=== PATIENT | male | born 1955 | race Two or more races ===

== ENCOUNTER 2025-02-03 10:33 | Emergency (ER) | payer MEDICARE, MEDICAID, SELFPAY ==
[2025-02-03 11:31] VITALS: BP 165/82; PULSE 66; RESP 16; TEMP 36.6; O2SAT 99; BMI 22.7
--- NOTE | 2025-02-03 11:35 | ED_ITS ---
HPI - General Adult General Chief complaint: Skin/Abscess/Foreign Body Stated complaint: R arm burn, L hand, Neck Time Seen by Provider: 02/03/25 11:34 Source: patient, family, RN notes reviewed and old records reviewed Mode of arrival: ambulatory Limitations: no limitations History of Present Illness ED Provider: Bebe [facility] narrative: Patient is a 69-year-old male presenting to the emergency department with daughter who reports that patient has recently developed excoriation and irritation to right AC area and upper arm as well as upper chest and left hand. Denies any history of eczema. States it is pruritic. Denies any fevers. Denies any other systemic symptoms. No rash to palms, soles. MD complaint: rash Related Data Previous Rx's ?Medication ?Instructions ?Recorded triamcinolone acetonide 0.025 % 1 appl topical TID 2 w eeks #15 02/03/25 topical cream grams Allergies Allergy/AdvReac Type Severity Reaction Status Date / Time No Known Allergies Allergy Verified 02/03/25 11:34 Review of Systems Review of Systems: as per hpi Yes all other systems are reviewed and are negative Constitutional: Constitutional: Reports as per HPI Physical Exam ED Vital Signs: Vital Signs - 24 hr 02/03/25 11:31 Temperature 98 F Pulse Rate 66 Respiratory Rate 16 Blood Pressure 165/82 H Pulse Oximetry 99 Oxygen Delivery Method Room Air BMI result Body Mass Index 22.7 Vital signs have been reviewed and appear to be correct. Blood pressure elevated. Heart rate normal. Respiratory rate normal. Temperature normal. Oxygen saturation normal. Const General: cooperative, healthy appearing and no acute distress Orientation/consciousness: oriented to person, oriented to place, oriented to time and patient oriented x3 Limitations: no limitations [facility] Head: Yes normocephalic and Yes atraumatic Ears: external ears normal General nose exam: Normal external nose present Face and sinus: Yes face symmetric Mouth: Normal oral and palatal mucosa present, lip normal, tongue normal, oropharynx normal and moist mucous membranes Throat: Yes uvula midline Eyes Pupils: Equal, round and reactive pupils present Neck Neck: Yes normal visual inspection and Yes supple Resp Effort & Inspection: normal respiratory effort and able to speak in complete sentences Auscultation: clear to auscultation bilaterally Cardio Rate: regular rate Rhythm: regular rhythm Heart sounds: S1 normal heart sound present and S2 normal heart sound present GI Palpation (GI): Soft to palpation and nontender Auscultation: normoactive bowel sounds General: Yes no CVA tenderness Back/Spine/Pelvis Back: no CVA tenderness Skin Other: erythema and excoriation to right anterior upper arm and antecubital area, left hand and upper chest General skin exam: elasticity normal and turgor normal Neuro General: oriented to person, oriented to place, oriented to time, patient oriented x3, moves all extremities, no focal motor deficits and CN's II-XI intact bilaterally Cranial nerves: Yes Equal, round and reactive pupils present Cognition (Neuro): normal cognition Extrem General: Yes full ROM, Yes no pedal edema and Yes no calf tenderness Psych Mental Status: mental status grossly normal Affect: normal affect Thought process: Normal thought process present Medical Decision Making Medical Decision Making [facility] Narrative: Patient is a 69-year-old male presenting to the emergency department with daughter who reports that patient has recently developed excoriation and irritation to right AC area and upper arm as well as upper chest and left hand. On exam patient is awake, A+Ox3, VS WNL, afebrile, normal neurological exam without focal deficits, physical exam findings as above. Given reported symptoms and physical exam findings, initial differential includes but is not limited to atopic dermatitis, contact dermatitis. Does not appear cellulitic. Do not suspect TEN/SJS, DRESS, TTP/DIC, necrotizing fasciitis, meningococcemia, SSSS, TSS, anaphylaxis. Will discharge with triamcinolone cream, also advised using a second generation antihistamine and famotidine for pruritis. Follow up with PCP. Return precautions discussed. Patient verbalized understanding of and agreement with plan. Differential Diagnosis Differential Diagnoses: The differential diagnosis associated with the presentation includes As per [facility] Admission/Observation Consideration of admission/observation: Escalation of care including admission/observation considered Patient would have been admitted to the hospital had their clinical presentation warranted hospital admission. External Record Review External record reviewed: Inpatient record, Office record and Outpatient record Prescription Management I considered prescription management with: Other Discharge Plan Discharge Clinical Impression: Atopic dermatitis Qualifiers: Atopic dermatitis type: unspecified Qualified Code(s): L20.9 - Atopic dermatitis, unspecified Patient Disposition: Home, Self-Care Instructions: Eczema (ED) Additional Instructions: You were evaluated in the emergency department today for a rash. Your evaluation did not reveal evidence of conditions requiring emergent medical treatment. We recommend that you take a daily antihistamine such as loratadine (Claritin) or cetirizine (Zyrtec). You can also add over the counter famotidine (Pepcid) which is a different type of antihistamine. You are being prescribed a topical cream, apply this as directed. You can also apply a thick unscented lotion to the affected areas such as Eucerine or Vanicream several times daily. Follow up with your primary care provider this week. If your symptoms do not improve, follow up with a cosmetologist. Return to the emergency department if you develop difficulty breathing or shortness of breath, swelling to lips, tongue, fever, rash inside your mouth or to your palms/soles or any other concerning symptoms. Prescriptions: New triamcinolone acetonide 0.025 % cream 1 appl topical TID 14 Days Qty: 15 0RF Print Language: Mohawk
--- OUTSIDE RECORDS SUMMARY | 2025-02-03 12:21 | XMS_ITS | Clinical Summary ---
Author Organization [facility] Address [address] [place] [address] Care Team Providers Care Rug Dyer Helper Name Role Phone DeepaliMarisabel rojas ALEXANDRA Primary Care Provider Source Comments PLEASE NOTE, if this patient is a minor, it may be UNLAWFUL to discuss sensitive information that is contained in these records (such as FAMILY PLANNING, MENTAL HEALTH or SUBSTANCE ABUSE) with the minor patient's parent or other person without the patient's specific authorization.[facility] Allergies No known active allergies Medications MISCELLANEOUS MEDICAL SUPPLY MISCIndications: Gait instability,Rout ine general medical examination at a health care facility by miscellaneous route daily Please dispense roller walker with a seat for lifetime use for hx of gait instability 1 Each 10/29/19 25 Active acetaminophen (TYLENOL) 325 mg tabletIndication s:Left leg pain,Chronic left shoulder pain Take 2 Tablets by mouth every 8 (eight) hours 90 Tablet 1 10/29/19 25 Active ferrous sulfate 325 mg (65 mg iron) tabletIndication s:Iron deficiency Take 1 Tablet by mouth once daily with breakfast 90 Tablet 11/01/19 25 Active amLODIPine (NORVASC) 2.5 mg tabletIndication s:Primary hypertension Take 1 Tablet by mouth once daily 90 Tablet 11/01/19 25 Active Active Problems No known active problems Encounters Date Type Department Care Team Description 12/23/2024 Interim Notes [address] [id number] Xavier Rudolph MA from Last 3 Months Family History Medical History Relation Name Comments Alcohol abuse Brother x6 Depression Daughter x1 Diabetes Daughter x1 No Known Problems Father Kidney failure Mother Relation Name Status Comments Brother x6 Alive Daughter x1 Alive Father Mother Sister x3 Alive Son x2 Alive Social History Tobacco Use Types Packs/Day Years Used Date Smoking Tobacco: Never Smokeless Tobacco: Never Tobacco Cessation:Counseling Given: Not Answered Alcohol Use Standard Drinks/Week Comments Yes 0 (1 standard drink = 0.6 oz pure alcohol) 15 drinks a week about 3 drinks a day Sex and Gender Information Value Date Recorded Sex Assigned at Male 10/28/2024 3:23 PM PDT Legal Sex Male 7:14 AM PDT Gender Identity Male 10/28/2024 3:23 PM PDT Sexual Orientation Straight 10/28/2024 3: 23 PM PDT Last Filed Vital Signs Vital Sign Reading Time Taken Comments Blood Pressure 140/80 10/28/2024 1:23 PM EDT Pulse 97 10/28/2024 1:23 PM EDT Temperature 36.8 C (98.2 F) 10/28/2024 1:23 PM EDT Respiratory Rate 16 10/28/2024 1:23 PM EDT Oxygen Saturation 97% 10/28/2024 1:23 PM EDT Inhaled Oxygen Concentration - - Weight 58.1 kg (128 lb) 10/28/2024 1:23 PM EDT Height 162 cm (5' 3.78 ) 10/28/2024 1:23 PM EDT Body Mass Index 22.12 10/28/2024 1:23 PM EDT Plan of Treatment Health Maintenance Due Date Last Done Comments CT Colonography 2000 Colonoscopy 2000 Colorectal Cancer Screening 2000 FIT/gFOBT 2000 Fecal DNA 2000 Flexible Sigmoidoscopy 2000 Depression Monitoring 01/28/2025 10/28/2024 [id number] () 01/28/2025 Postponed from 02/24 (Patient postponement) Imm-DTaP/Tdap/Td (1 - Tdap) 01/28/2025 Postponed from 1974 (Patient postponement) Imm-Pneumococcal 50+ (1 of 1 - PCV) 01/28/2025 Postponed from 04/19 (Patient postponement) Imm-Zoster, Recombinant (1 o f 2) 01/28/2025 Postponed from 04/19 (Patient postponement) Imm-Influenza (#1) 2025 Falls Prevention 10/28/2025 10/28/2024 Medicare Annual Wellness Visit 10/28/2025 10/28/2024 Tobacco Screening 10/28/2025 10/28/2024 Diabetes Screening 10/29/2027 10/28/2024, 10/28/2024 Lipid Screening 10/29/2027 10/28/2024 Alcohol and Drug Screen Addressed 10/28/2024 Over ridden with the intention of not completing the topic Hepatitis C Screening Completed 10/28/2024 Procedures Procedure Name Priority Date/Time Associated Diagnosis Comments OTHER ORDERS SCANNED DOCUMENT 12/25/2024 3:00 AM EDT OTHER ORDERS SCANNED DOCUMENT 12/25/2024 3:00 AM EDT OTHER ORDERS SCANNED DOCUMENT 12/25/2024 3:00 AM EDT REFERRAL SCANNED DOCUMENT 11/18/2024 3:00 AM EDT LAB COLOGUARD COLON CANCER SCREEN AMB- Unsuccessful Attempt Routine 11/11/2024 1:14 PM EDT Screening for colon cancer Routine general medical examination at a health care facility OTHER ORDERS SCANNED DOCUMENT 11/11/2024 3:00 AM EDT HEPATITIS C AB W/RFLX HCV RNA, QT, RT PCR Routine 10/28/2024 2:09 PM EDT Routine general medical examination at a health care facility Encounter for hepatitis C virus screening test for high risk patient COMPREHENSIVE METABOLIC PANEL Routine 10/28/2024 2:09 PM EDT Routine general medical examination at a health care facility LIPID PANEL Routine 10/28/2024 2:09 PM EDT Routine general medical examination at a health care facility from Last 3 Months or Most Recently Relevant to Health Maintenance Results * OTHER ORDERS SCANNED DOCUMENT (12/25/2024 3:00 AM EDT) Only the most recent of4 resultswithin the time period is included. 12/25/2024 3:00 AM EDT Marisabel Palumbo INFORMATION DIRECTOR SCAN OTHER ORDERS Final Resu lt * REFERRAL SCANNED DOCUMENT (11/18/2024 3:00 AM EDT) 11/18/2024 3:00 AM EDT [facility] Provider Default SCAN REFERRAL Final Resu lt * Cologuard?? colon cancer screening (11/11/2024 1:14 PM EDT) - Unsuccessful Attempt COLOGUARD RESULT Sample Could Not Be Processed 4 N/A 11/13/2024 6:46 PM EDT [facility] (CLIA #:[id number]) Comment: The Cologuard (TM) test was assigned to this specimen. The collection kit was damaged prior to receipt in the laboratory. The patient will be contacted to initiate a new sample collection. Stool specimen (specimen) 11/11/2024 1:14 PM EDT 11/12/2024 10:18 AM EDT Marisabel Palumbo [facility] BODY FLUIDS AND STOOLS A MBULATORY Final Result [facility] (CLIA #:[id number]) [address] [place] [address], * HEPATITIS C AB W/RFLX HCV RNA, QT, RT PCR (10/28/2024 2:09 PM EDT) Pathologist [facility] HEPATITIS C ANTIBODY NON-REACT ELIZ NON-REACT ELIZ [facility] Comment: HCV antibody was non-reactive. There is no laboratory evidence of HCV infection. In most cases, no further action is required. However, if recent HCV exposure is suspected, a test for HCV RNA (test code 37551) is suggested. For additional information please refer to http://education.Dónde.aihuishou/faq/TRB45a3 (This link is being provided for informational/ educational purposes only.) Blood Blood / Unknown 10/28/2024 2 :09 PM EDT 10/28/2024 2:10 PM EDT Narrative [facility] - 10/30/2024 3:48 AM EDT FASTING:YES PATIENT UNABLE TO VOID; ADVISED TO RETURN FOR COLLECTION. Marisabel Palumbo [facility] - BLOOD DRAW Edited Resu lt - Final Performing Organization Address [facility]/ZIP Co de Phone Number [facility] [address] [address], [facility] [address] [address] * (ABNORMAL) LIPID PANEL (10/28/2024 2:09 PM EDT) [facility] CHOLESTEROL, TOTAL 213(H) <200 mg/dL [facility] HDL CHOLESTEROL 95 > OR = 40 mg/dL [facility] TRIGLYCERIDES 166(H) <150 mg/dL [facility] LDL-CHOLESTEROL 92 99 mg/dL (calc) [facility] Comment: Reference range: <100 Desirable range <100 mg/dL for primary prevention; <70 mg/dL for patients with CHD or diabetic patients with > or = 2 CHD risk factors. LDL-C is now calculated using the Charlie-Shilpi calculation, which is a validated novel method providing better accuracy than the Friedewald equation in the estimation of LDL-C. Charlie IZAGUIRRE et al. RACHELE. 2013;310(19): 5928-2635 (http://education.[employer]/faq/EJI152) CHOL/HDLC RATIO 2.2 <5.0 (calc) [facility] NON-HDL CHOLESTEROL 118 <130 mg/dL (calc) [facility] Comment: For patients with diabetes plus 1 major ASCVD risk factor, treating to a non-HDL-C goal of <100 mg/dL (LDL-C of <70 mg/dL) is considered a therapeutic option. Blood Blood / Unknown 10/28/2024 2 :09 PM EDT 10/28/2024 2:10 PM EDT Narrative [facility] - 10/30/2024 3:48 AM EDT FASTING:YES PATIENT UNABLE TO VOID; ADVISED TO RETURN FOR COLLECTION. Marisabel Palumbo [facility] - BLOOD DRAW Final Resul t Performing Organization Address [facility]/ZIP Co de Phone Number [facility] [address] [address] [address] [address] * (ABNORMAL) COMPREHENSIVE METABOLIC PANEL (10/28/2024 2:09 PM EDT) GLUCOSE 104(H) 65 - 99 mg/dL [facility] Comment: Fasting reference interval For someone without known diabetes, a glucose value between 100 and 125 mg/dL is consistent with prediabetes and should be confirmed with a follow-up test. UREA NITROGEN (BUN) 33(H) 7 - 25 mg/dL [facility] CREATININE (blood) 1.53(H) 0.70 - 1.35 mg/dL [facility] EGFR 49(L) > OR = 60 mL/min/1. 73m2 [facility] BUN/CREATININE RATIO 22 6 - 22 (calc) [facility] SODIUM 137 135 - 146 mmol/L [facility] POTASSIUM 4.6 3.5 - 5.3 mmol/L [facility] CHLORIDE 100 98 - 110 mmol/L [facility] CARBON DIOXIDE 26 20 - 32 mmol/L [facility] CALCIUM 9.8 8.6 - 10.3 mg/dL [facility] PROTEIN, TOTAL 8.5(H) 6.1 - 8.1 g/dL [facility] ALBUMIN 4.4 3.6 - 5.1 g/dL [facility] GLOBULIN 4.1(H) 1.9 - 3.7 g/dL (calc) [facility] ALBUMIN/GLOBULI N RATIO 1.1 1.0 - 2.5 (calc) [facility] BILIRUBIN, TOTAL 0.9 0.2 - 1.2 mg/dL [facility] ALKALINE PHOSPHATASE 99 35 - 144 U/L [facility] AST 21 10 - 35 U/L [facility] ALT 10 9 - 46 U/L [facility] Blood Blood / Unknown 10/28/2024 2 :09 PM EDT 10/28/2024 2:10 PM EDT Narrative [facility] - 10/30/2024 3:48 AM EDT FASTING:YES PATIENT UNABLE TO VOID; ADVISED TO RETURN FOR COLLECTION. us Marisabel Palumbo [facility] - BLOOD DRAW Edited Resu lt - Final [facility] [address] [address], [facility] [address] [place] [address] from Last 3 Months or Most Recently Relevant to Health Maintenance Insurance [place] [facility] Care Teams Rug Dyer Helper Relationship Specialty Start Date End Date Marisabel Palumbo FNP [address] [place] [address] PCP - General Family Medicine, BAG SHAKER 11/07/24
[2025-02-03 12:27] VITALS: BP 165/82; PULSE 66; RESP 16; TEMP 36.6; O2SAT 99
== END 2025-02-03 12:27 | disposition home or self-care (01) ==
PROVIDERS: Emergency Provider Emergency Medicine; PCP Dentist General Practice
DX: L20.9 Atopic dermatitis, unspecified (principal)
CPT/HCPCS: 99282; 99283

== ENCOUNTER 2025-04-30 11:27 | Outpatient (REF) | payer MEDICARE, MEDICAID, SELFPAY ==
[2025-04-30 11:54] LABS: MANUAL DIFF FLAG NO
[2025-04-30 12:14] LABS: Hematocrit 41.0 % (42.0-52.0); Hemoglobin 13.6 g/dl (14.0-18.0); Imm Gran Abs Auto 0.09 X10*3/uL (0.00-0.03); Imm Gran Pct Auto 1.3 % (0.0-0.4); Lymphocytes Absolute Auto 1.6 X10*3/uL (1.2-4.9); Mean Corpuscular HGB Conc 33.2 g/dl (31.0-36.0); Mean Corpuscular Hemoglobin 31.3 pg (27.0-33.0); Mean Corpuscular Volume 94.5 fL (80.0-98.0); NRBC Abs Auto 0.000 X10*3/uL (0.0-0.012); NRBC Pct Auto 0.0 /100WBC (0.0-0.2); Platelet Count 237 X10*3/uL (160-400); Red Blood Count 4.34 X10*6/uL (4.60-5.80); White Blood Count 6.9 X10*3/uL (4.8-10.8)
[2025-04-30 12:58] LABS: Parathyroid Hormone Intact 84.5 pg/mL (8.7-77.1)
[2025-04-30 13:05] LABS: Alanine Aminotransferase 13 U/L (0-40); Albumin Level 4.8 g/dL (3.5-5.0); Alkaline Phosphatase 85 U/L (39-117); Anion Gap 13 (12-20); Aspartate Amino Transferase 24 U/L (5-37); Blood Urea Nitrogen 32 mg/dL (9-16); Calcium 9.4 mg/dL (8.4-10.2); Carbon Dioxide 24 mmol/L (22-29); Chloride 107 mmol/L (96-108); Estimated Glomerular Filt Rate 47; Iron 226 mcg/dL (45-160); Magnesium 2.1 mg/dL (1.6-2.6); Percent Iron Saturation 66 % (15-50); Potassium 4.2 mmol/L (3.3-5.1); Sodium 140 mmol/L (135-145); Total Iron Binding Capacity 344 mcg/dL (228-428); Total Protein 8.5 g/dL (6.5-8.0); Unsaturated Iron Binding 118 ug/dL; Uric Acid 9.0 mg/dL (3.4-7.0)
[2025-04-30 13:13] LABS: Ferritin 136 ng/mL (20-250)
--- OUTSIDE RECORDS SUMMARY | 2025-04-30 14:07 | XMS_ITS | Clinical Summary ---
Author Organization [facility] Address [address] [place] [address] Phone Care Team Providers Care Hotel Assistant Manager Name Role Phone Marisabel Palumbo Primary Care Provider [phone] Allergies No known active allergies Medications ferrous sulfate 325 (65 Fe) MG tablet Take 1 tablet by mouth 1 (one) time each day with breakfast 5 Active acetaminophen (TYLENOL) 325 MG tablet Take 650 mg by mouth every 8 hours 5 Active amLODIPine (NORVASC) 2.5 MG tablet Take 2.5 mg by mouth in the morning. 5 Active cetirizine (ZyrTEC) 10 MG tablet Take 10 mg by mouth in the morning. Active Docusate Sodium (DSS) 100 MG capsule Take 100 mg by mouth in the morning and 100 mg in the evening. 5 Active Active Problems Problem Noted Date Diagnosed Date Stage 3a chronic kidney disease 04/03/2025 Encounters Date Type Department Care Team Description 04/03/2025 2:00 PM EDT Office Visit [facility] [address] [place] [address] Zeeshan Milian MD Stage 3a chronic kidney disease (HCC) (Primary Dx) 02/13/2025 Documentation Only [facility] [address] [place] [address] Kasey De Luna MA from Last 3 Months Social History Tobacco Use Types Packs/Day Years Used Date Smoking Tobacco: Never Assessed Sex and Gender Information Value Date Recorded Sex Assigned at Not on file Legal Sex Male 9:23 AM EDT Gender Identity Not on file Sexual Orientation Not on file Plan of Treatment Upcoming Encounters Date Type Department Care Team (Late st Contact Info) Description 06/18/2025 2:15 PM EST Office Visit [facility] [place], [address] [address] Zeeshan Milian MD [address] [facility] [facility] [address] [place] [address] Health Maintenance Due Date Last Done Comments Pneumococcal Vaccine: 50+ Ye ars (1 of 2 - PCV) 1974 Colorectal Cancer Screening: Annual FOBT 2004 Colorectal Cancer Screening: Colonoscopy 2004 Colorectal Cancer Screening: Sigmoidoscopy 2004 Influenza Vaccine (#1) 2025 Hepatitis B Vaccine Aged Out No longe r eligible based on patient's age to complete this topic Insurance [place] Care Teams Hotel Assistant Manager Relationship Specialty Start Date End Date Marisabel Palumbo [address] [place] [id number] [facility] - General 02/13/25
--- OUTSIDE RECORDS SUMMARY | 2025-04-30 14:07 | XMS_ITS | Encounter Summary ---
Author Organization [facility] Address [address] [facility] [address] [place] [address] Phone Care Team Providers Care Pre Sales Technical Engineer Name Role Phone Marisabel Palumbo Primary Care Provider [phone] Encounter Details Date Type Department Care Team (Late st Contact Info) Description 02/13/2025 Documentation Only [facility] [address] [place] [address] Kasey De LunaROG[place], [place] [address] [place] [address] Social History Tobacco Use Types Packs/Day Years Used Date Smoking Tobacco: Never Assessed Sex and Gender Information Value Date Recorded Sex Assigned at Not on file Legal Sex Male 9:23 AM EDT Gender Identity Not on file Sexual Orientation Not on file documented as of this encounter Plan of Treatment Upcoming Encounters Date Type Department Care Team (Late st Contact Info) Description 06/18/2025 2:15 PM EST Office Visit [facility] [address] [place] [address] Zeeshan Milian MD [address] [place] [address] [place] [phone] documented as of this encounter Visit Diagnoses Not on filedocumented in this encounter Care Teams Pre Sales Technical Engineer Relationship Specialty Start Date End Date Marisabel Palumbo [address] [place] [address] PCP - General 02/13/25 documented as of this encounter
[2025-05-02 21:03] LABS: Prot Elec - Albumin 4.6 g/dL (3.8-4.8); Prot Elec - Alpha1 0.2 g/dL (0.2-0.3); Prot Elec - Alpha2 0.6 g/dL (0.5-0.9); Prot Elec - Beta 1 0.6 g/dL (0.4-0.6); Prot Elec - Beta 2 0.8 g/dL (0.2-0.5); Prot Elec - Gamma 1.7 g/dL (0.8-1.7); Prot Elec - Total Protein 8.5 g/dL (6.1-8.1)
[2025-05-07 16:32] LABS: Kappa, Serum 547 mg/dL (176-443); Kappa/Lambda Ratio, Serum 1.92 (1.29-2.55); Lambda, Serum 285 mg/dL (91-240)
== END 2025-04-30 11:28 | disposition home or self-care (01) ==
LOC: HO.LAB 11:27
PROVIDERS: PCP Dentist General Practice; Visit Provider Internal Medicine
DX: Z01.84 Encounter for antibody response examination (principal); N18.31 Chronic kidney disease, stage 3a
CPT/HCPCS: 80053; 82248; 82306; 82728; 82784; 83540; 83735; 83883; 83921; 83970; 84100; 84165; 84550; 85025; 86334

== ENCOUNTER 2025-05-01 14:59 | Outpatient (REF) | payer MEDICARE, MEDICAID, SELFPAY ==
[2025-05-01 15:11] LABS: Appearance Urine Clear; Glucose Urine UA Negative (Negative); PH 5.5 (5.0-9.0); Specific Gravity - Urine 1.015 (1.005-1.025)
[2025-05-01 16:13] LABS: Microalbum/Creatinine Ratio Ur 85.4 ug/mg cr (<30)
--- OUTSIDE RECORDS SUMMARY | 2025-05-01 18:05 | XMS_ITS | Encounter Summary ---
Author Organization [facility] Address [address] [facility] [address] [place] [address] Phone Care Team Providers Care Regional Engineer Name Role Phone Marisabel Palumbo Primary Care Provider [phone] Encounter Details Date Type Department Care Team (Late st Contact Info) Description 02/13/2025 Documentation Only [facility] [address] [place] [address] Kasey De Luna[place]AD[place], [place] [address] [place] [address] Social History Tobacco Use Types [...] Visit [facility] [address] [place] [address] Zeeshan Milian MD [address] [place] [address] [place] [phone] documented as of this encounter Visit Diagnoses Not on filedocumented in this encounter Care Teams Regional Engineer Relationship Specialty Start Date End Date Marisabel Palumbo [address] [place] [address] PCP - General 02/13/25 documented as of this encounter
--- OUTSIDE RECORDS SUMMARY | 2025-05-01 18:05 | XMS_ITS | Clinical Summary ---
Author Organization [facility] Address [address] [place] [address] Care Team Providers Care Payroll Associate Name Role Phone DeepaliMarisabel deluna ALEXANDRA Primary Care Provider Source Comments PLEASE [...] hours 90 Tablet 1 10/29/19 25 Active docusate sodium (COLACE) 100 mg capsuleIndicatio ns:Slow transit constipation Take 1 Capsule by mouth 2 (two) times daily. 90 Capsule 1 03/17/20 25 Active cetirizine (ZYRTEC) 10 mg tabletIndication s:Other eczema Take 1 Tablet by mouth once daily. 90 Tablet 2 03/17/20 25 Active triamcinolone (KENALOG) 0.025 % creamIndications :Other eczema Apply 1 Application topically 2 (two) times daily. 80 g 2 03/17/20 25 Active amLODIPine (NORVASC) 2.5 mg tabletIndication s:Primary hypertension Take 1 Tablet by mouth once daily. 90 Tablet 03/17/20 25 Active ferrous sulfate 325 mg (65 mg iron) tabletIndication s:Iron deficiency Take 1 Tablet by mouth once daily with breakfast. 90 Tablet 03/20/20 25 Active Active Problems No known active problems Encounters Date Type Department Care Team Description 03/20/2025 Results Follow-Up [address] [id number] Marisabel Palumbo FNP 03/17/2025 1:20 PM EDT Office Visit [address] [phone] Marisabel Palumbo FNP from Last 3 Months Family History Medical [...] Sign Reading Time Taken Comments Blood Pressure 140/90 03/17/2025 1:31 PM EDT Pulse 77 03/17/2025 1:31 PM EDT Temperature 36.8 C (98.3 F) 03/17/2025 1:31 PM EDT Respiratory Rate 16 03/17/2025 1:31 PM EDT Oxygen Saturation 92% 03/17/2025 1:31 PM EDT Inhaled Oxygen Concentration - - Weight 58.2 kg (128 lb 6.4 oz) 03/17/2025 1:31 P M EDT Height 160 cm (5' 3 ) 03/17/2025 1:31 PM EDT Body Mass Index 22.75 03/17/2025 1:31 PM EDT Plan of Treatment Health Maintenance Due Date Last Done Comments CT Colonography 2000 Colonoscopy 2000 Flexible Sigmoidoscopy 2000 Depression Monitoring 06/16/2025 03/17/2025 , 10/28/2024 [id number] ( season) 2025 Postponed from 02/24 (Patient postponement) Imm-DTaP/Tdap/Td (1 - Tdap) 06/16/2025 Postponed from 1974 (Patient postponement) Imm-Influenza (#1) 2025 Postponed from 02/24/2025 (Patient postponement) Imm-Pneumococcal 50+ (1 of 1 - PCV) 06/16/2025 Postponed from 04/19 (Patient postponement) Imm-Zoster, Recombinant (1 o f 2) 06/16/2025 Postponed from 04/19 (Patient postponement) Falls Prevention 10/28/2025 10/28/2024 Medicare Annual Wellness Visit 10/28/2025 10/28/2024 FIT/gFOBT 01/28/2026 01/28/2025, 01/28/2025 Tobacco Screening 03/17/2026 03/17/2025 Diabetes Screening 10/29/2027 10/28/2024, 10/28/2024 Lipid Screening 10/29/2027 10/28/2024 Colorectal Cancer Screening 01/29/2028 Fecal DNA 01/29/2028 01/28/2025, 01/28/2025 Alcohol and Drug Screen Addressed 10/28/2024 Over ridden with the intention of not completing the topic Hepatitis C Screening Completed 10/28/2024 Procedures Procedure Name Priority Date/Time Associated Diagnosis Comments REFERRAL TO NEPHROLOGY Urgent 3:00 AM EDT CKD stage 3a, GFR 45-59 ml/min IRON, TIBC, FERRITIN PANEL Routine 03/17/2025 2:11 PM EDT Iron deficiency BLOOD COUNT COMPLETE AUTO&AUTO DIFRNTL WBC Routine 03/17/2025 2:11 PM EDT Iron deficiency REFERRAL SCANNED DOCUMENT 02/17/2025 3:00 AM EDT LAB COLOGUARD COLON CANCER SCREEN AMB Routine 01/28/2025 8:00 AM EDT Screening for colon cancer Routine [facility] HEPATITIS C AB W/RFLX HCV RNA, QT, [...] Recently Relevant to Health Maintenance Results * REFERRAL TO NEPHROLOGY (04/03/2025 3:00 AM EDT) 04/03/2025 3:00 AM EDT us Marisable MORRIS REFERRAL Final Result * IRON, TIBC, FERRITIN PANEL Routine (03/17/2025 2:11 PM EDT) IRON, TOTAL 86 50 - 180 mcg/dL 03/18/2025 8:06 AM EDT [facility] IRON BINDING CAPACITY 361 250 - 425 mcg/dL (calc) 03/18/2025 8:06 AM EDT [facility] % SATURATION 24 20 - 48 % (calc) 03/18/2025 8:06 AM EDT [facility] FERRITIN 90 24 - 380 ng/mL 03/18/2025 8:19 AM EDT [employer] [facility] Blood Blood / Unknown 03/17/2025 2 :11 PM EDT 03/18/2025 6:32 AM EDT us Marisabel MORRIS LAB - BLOOD DRAW Final Resul t [facility] [address] [address], [facility] [address] [phone] * (ABNORMAL) BLOOD COUNT COMPLETE AUTO&AUTO DIFRNTL WBC Routine (03/17/2025 2:11 PM EDT) [facility] WHITE BLOOD CELL COUNT 7.9 3.8 - 10.8 Thousand/ uL 03/18/2025 6:28 AM Jamalon[facility] RED BLOOD CELL COUNT 4.05(L) 4.20 - 5.80 Million/u L 03/18/2025 6:28 AM [facility] HEMOGLOBIN 13.0(L) 13.2 - 17.1 g/dL 03/18/2025 6:28 AM EDiKONVERSE [facility] HEMATOCRIT 39.9 38.5 - 50.0 % 03/18/2025 6:28 AM EDiKONVERSE [facility] MCV 98.5 80.0 - 100.0 fL 03/18/2025 6:28 AM EDiKONVERSE [facility] MCH 32.1 27.0 - 33.0 pg 03/18/2025 6:28 AM [facility] MCHC 32.6 32.0 - 36.0 g/dL 03/18/2025 6:28 AM [facility] RDW 12.2 11.0 - 15.0 % 03/18/2025 6:28 AM [facility] PLATELET COUNT 268 140 - 400 Thousand/ uL 03/18/2025 6:28 AM [facility] MPV 10.5 7.5 - 12.5 fL 03/18/2025 6:28 AM [facility] ABSOLUTE NEUTROPHILS 5,412 1,500 - 7,800 cells/uL 03/18/2025 6:28 AM [facility] ABSOLUTE LYMPHOCYTES 1,612 850 - 3,900 cells/uL 03/18/2025 6:28 AM [facility] ABSOLUTE MONOCYTES 766 200 - 950 cells/uL 03/18/2025 6:28 AM [facility] ABSOLUTE EOSINOPHILS 87 15 - 500 cells/uL 03/18/2025 6:28 AM [facility] ABSOLUTE BASOPHILS 24 0 - 200 cells/uL 03/18/2025 6:28 AM [facility] NEUTROPHILS PCT 68.5 % 6:28 AM [facility] LYMPHOCYTES 20.4 % 03/18/2025 6:28 AM [facility] MONOCYTES 9.7 % 03/18/2025 6:28 AM EDT [facility] EOSINOPHILS 1.1 % 03/18/2025 6:28 AM EDT [facility] BASOPHILS 0.3 % 03/18/2025 6:28 AM EDT [facility] Blood Blood / Unknown 03/17/2025 2 :11 PM EDT 03/18/2025 4:16 AM EDT Narrative [facility] [employer] - 03/18/2025 6:31 AM EDT For adults, a slight decrease in the calculated MCHC value (in the range of 30 to 32 g/dL) is most likely not clinically significant; however, it should be interpreted with caution in correlation with other red cell parameters and the patient's clinical condition. Marisabel Palumbo CARDIOPULMONARY PHYSICAL THERAPIST LAB - BLOOD DRAW Final Resul t [email or web address] [address] [place] [id number], [facility] [address] [address] * REFERRAL SCANNED DOCUMENT (02/17/2025 3:00 AM EDT) 02/17/2025 3:00 AM EDT [facility] Provider Default SCAN REFERRAL Final Resu lt * Cologuard?? colon cancer screening Per Rectum Stool Routine (01/28/2025 8:00 AM EDT) COLOGUARD RESULT Negative Negative 02/06/20 1:00 PM EDT [facility] (CLIA #:[id number]) Comment: The Cologuard (TM) test was performed on this specimen. NEGATIVE TEST RESULT. A negative Cologuard result indicates a low likelihood that a colorectal cancer (CRC) or advanced adenoma (adenomatous polyps with more advanced pre-malignant features) is present. The chance that a person with a negative Cologuard test has a colorectal cancer is less than 1 in 1500 (negative predictive value >99.9%) or has an advanced adenoma is less than 5.3% (negative predictive value 94.7%). These data are based on a prospective cross-sectional study of 10,000 individuals at average risk for colorectal cancer who were screened with both Cologuard and colonoscopy. (Lydia Ross al, N Engl J Med 2014;370(14):1286- 1297) The normal value (reference range) for this assay is negative. COLOGUARD RE-SCREENING RECOMMENDATION: Periodic colorectal cancer screening is an important part of preventive healthcare for asymptomatic individuals at average risk for colorectal cancer. Following a negative Cologuard result, the [place] Cancer Society and U.S. Multi-Society Task Force screening guidelines recommend a Cologuard re-screening interval of 3 years. References: [place] [employer] Guideline for Colorectal Cancer Screening: https://www.cancer.org/cancer/qeseb-dekens-ptaabf/diphwlnit-shvzylbic-mryrdav/ac s-rec ommendations.html.; Azar DK, Nabila BROWN, Carlos MeiK, Colorectal Cancer Screening: Recommendations for Physicians and Patients from the U.S. Multi-Society Task Force on Colorectal Cancer Screening , Am J Gastroenterology 2017; 112:9235-9711. TEST DESCRIPTION: Composite algorithmic analysis of stool DNA-biomarkers with hemoglobin immunoassay. Quantitative values of individual biomarkers are not reportable and are not associated with individual biomarker result reference ranges. Cologuard is intended for colorectal cancer screening of adults of either sex, 45 years or older, who are at average-risk for colorectal cancer (CRC). Cologuard has been approved for use by the U.S. FDA. The performance of Cologuard was established in a cross sectional study of average-risk adults aged 50-84. Cologuard performance in patients ages 45 to 49 years was estimated by sub-group analysis of near-age groups. Colonoscopies performed for a positive result may find as the most clinically significant lesion: colorectal cancer [4.0%], advanced adenoma (including sessile serrated polyps greater than or equal to 1cm diameter) [20%] or non- advanced adenoma [31%]; or no colorectal neoplasia [45%]. These estimates are derived from a prospective cross-sectional screening study of 10,000 individuals at average risk for colorectal cancer who were screened with both Cologuard and colonoscopy. (Lydia Hammond, N Engl J Med 2014;370(14):5298-0263.) Cologuard may produce a false negative or false positive result (no colorectal cancer or precancerous polyp present at colonoscopy follow up). A negative Cologuard test result does not guarantee the absence of CRC or advanced adenoma (pre-cancer). The current Cologuard screening interval is every 3 years. ([place] Cancer Society and U.S. Multi-Society Task Force). Cologuard performance data in a 10,000 patient pivotal study using colonoscopy as the reference method can be accessed at the following location: www.[employer]G/results. Additional description of the Cologuard test process, warnings and precautions can be found at www.MiTúrd.com. Stool specimen (specimen) (Per Rectum) 01/28/2025 8:00 AM EDT 01/30/2025 10:24 AM EDT Marisabel Palumbo [facility] BODY FLUIDS AND STOOLS A MBULATORY Final Result [facility]lett[facility] (CLIA #:[id number]) [address] [place] [address], * HEPATITIS C AB W/RFLX HCV RNA, QT, RT PCR (10/28/2024 2:09 PM EDT) HEPATITIS C ANTIBODY NON-REACT ELIZ NON-REACT ELIZ [facility] Comment: HCV antibody was non-reactive. There is no laboratory evidence of HCV infection. In most cases, no further action is required. However, if recent HCV exposure is suspected, a test for HCV RNA (test code 36147) is suggested. For additional information please refer to http://education.FedTax.Oppex/faq/KLW50k3 (This link is being provided for informational/ educational purposes only.) Blood Blood / Unknown 10/28/2024 2 :09 PM EDT 10/28/2024 2:10 PM EDT Narrative [facility] - 10/30/2024 3:48 AM EDT FASTING:YES PATIENT UNABLE TO VOID; ADVISED TO RETURN FOR COLLECTION. Marisabel Palumbo [facility] - BLOOD DRAW Edited Resu lt - Final Performing Organization Address [facility]/ZIP Co de Phone Number [email or web address] [address] [address], [employer] [address] [place] [phone] * (ABNORMAL) LIPID PANEL (10/28/2024 2:09 PM EDT) [facility] Signature CHOLESTEROL, TOTAL 213(H) <200 mg/dL [employer] [facility] HDL CHOLESTEROL 95 > OR = 40 mg/dL [facility] TRIGLYCERIDES 166(H) <150 mg/dL [employer] [facility] LDL-CHOLESTEROL 92 99 mg/dL (calc) [facility] Comment: Reference range: <100 Desirable range <100 mg/dL for primary prevention; <70 mg/dL for patients with CHD or diabetic patients with > or = 2 CHD risk factors. LDL-C is now calculated using the Alexander calculation, which is a validated novel method providing better accuracy than the Friedewald equation in the estimation of LDL-C. Charlie IZAGUIRRE et al. RACHELE. 2013;310(19): 8422-8658 (http://education.Big Box Overstocks/faq/JAQ910) CHOL/HDLC RATIO 2.2 <5.0 (calc) [facility] NON-HDL CHOLESTEROL 118 <130 mg/dL (calc) [facility] Comment: For patients with diabetes plus 1 major ASCVD risk factor, treating to a non-HDL-C goal of <100 mg/dL (LDL-C of <70 mg/dL) is considered a therapeutic option. Blood Blood / Unknown 10/28/2024 2 :09 PM EDT 10/28/2024 2:10 PM EDT Narrative [employer] [facility] - 10/30/2024 3:48 AM EDT FASTING:YES PATIENT UNABLE TO VOID; ADVISED TO RETURN FOR COLLECTION. us Marisabel Palumbo [facility] - BLOOD DRAW Final Resul t Performing Organization Address City/[facility]/ZIP Co de Phone Number [employer] [address] [address], [place] [facility] [address] [phone] * (ABNORMAL) COMPREHENSIVE METABOLIC PANEL (10/28/2024 2:09 PM EDT) GLUCOSE 104(H) 65 - 99 mg/dL [facility] Comment: Fasting reference interval For someone without known diabetes, a glucose value between 100 and 125 mg/dL is consistent with prediabetes and should be confirmed with a follow-up test. UREA NITROGEN (BUN) 33(H) 7 - 25 mg/dL [facility] CREATININE (blood) 1.53(H) 0.70 - 1.35 mg/dL [facility] EGFR 49(L) > OR = 60 mL/min/1. 73m2 [facility] BUN/CREATININE RATIO 22 6 - 22 (calc) [facility] SODIUM 137 135 - 146 mmol/L [facility] POTASSIUM 4.6 3.5 - 5.3 mmol/L [facility] CHLORIDE 100 98 - 110 mmol/L [facility] CARBON DIOXIDE 26 20 - 32 mmol/L [facility] CALCIUM 9.8 8.6 - 10.3 mg/dL [facility] PROTEIN, TOTAL 8.5(H) 6.1 - 8.1 g/dL [facility] ALBUMIN 4.4 3.6 - 5.1 g/dL [facility] GLOBULIN 4.1(H) 1.9 - 3.7 g/dL (calc) [facility] ALBUMIN/GLOBULI N RATIO 1.1 1.0 - 2.5 (calc) [facility] BILIRUBIN, TOTAL 0.9 0.2 - 1.2 mg/dL [facility] ALKALINE PHOSPHATASE 99 35 - 144 U/L [facility] AST 21 10 - 35 U/L [facility] ALT 10 9 - 46 U/L [facility] Blood Blood / Unknown 10/28/2024 2 :09 PM EDT 10/28/2024 2:10 PM EDT Narrative [employer] [facility] - 10/30/2024 3:48 AM EDT FASTING:YES PATIENT UNABLE TO VOID; ADVISED TO RETURN FOR COLLECTION. Marisabel [facility] LAB - BLOOD DRAW Edited Resu lt - Final [facility] [address] [address], [facility] [address] [place] [address] from Last 3 Months or Most Recently Relevant to Health Maintenance Insurance [place] MEDICAID [facility] Care Teams Payroll Associate Relationship Specialty Start Date End Date Marisabel Palumbo FNP [address] [place] [address] PCP - General Family Medicine, SIPHONER 11/07/24
--- OUTSIDE RECORDS SUMMARY | 2025-05-01 18:05 | XMS_ITS | Encounter Summary ---
Author Organization [facility] Address [address] [place] [address] Care Team Providers Care Baker Pastry Name Role Phone Marisabel Palumbo Primary Care Provider Encounter Details Date Type Department Care Team (Late st Contact Info) Description 12/23/2024 Interim Notes [facility] [address] [place] [phone] Xavier Rudolph [place] [address] [place] [address] Social History Tobacco Use Types Packs/Day Years Used Date Smoking Tobacco: Never Smokeless Tobacco: Never Alcohol Use Standard Drinks/Week Comments Yes 0 (1 standard drink = 0.6 oz pure alcohol) 15 drinks a week about 3 drinks a day Sex and Gender Information Value Date Recorded Sex Assigned at Male 10/28/2024 3:23 PM PDT Legal Sex Male 7:14 AM PDT Gender Identity Male 10/28/2024 3:23 PM PDT Sexual Orientation Straight 10/28/2024 3: 23 PM PDT documented as of this encounter Plan of Treatment Not on file documented as of this encounter Visit Diagnoses Not on filedocumented in this encounter Additional Health Concerns Assessment Noted Time PHQ-9 Depression Total Score: 15 025 1:18 PM PDT A Depression follow-up plan has been documented for the patient 10/28/2024 6:23 PM PDT PHQ-2 Depression Total Score: 3 10/29/19 25 1:18 PM PDT documented as of this encounter Care Teams Baker Pastry Relationship Specialty Start Date End Date Marisabel Palumbo FNP [address] [place] [address] PCP - General Family Medicine, [employer]PSHO[employer]ER 11/07/24 documented as of this encounter
--- OUTSIDE RECORDS SUMMARY | 2025-05-01 18:05 | XMS_ITS | Clinical Summary ---
Author Organization [facility] Address [address] [place] [address] Phone Care Team Providers Care Barrel Finisher Name Role Phone Marisabel Palumbo Primary Care Provider [phone] Allergies No known active allergies Medications ferrous [...] 10 mg by mouth in the morning. 5 Active Docusate Sodium (DSS) 100 MG capsule Take 100 mg by mouth in the morning and 100 mg in the evening. 5 Active Active Problems Problem Noted Date Diagnosed Date Stage 3a chronic kidney disease 04/03/2025 Encounters Date Type Department Care Team Description 04/03/2025 2:00 PM EDT Office Visit [facility] [address] [place] [address] Zeeshan Milian MD Stage 3a chronic kidney disease (HCC) (Primary Dx) 02/13/2025 Documentation Only [facility] [address] [place] [address] Kasey De Luna MA from [...] Visit [facility] [place], [address] [place] [address] Zeeshan Milian MD [address] [facility] [address] [place] [address] Health Maintenance Due Date Last Done Comments Pneumococcal Vaccine: 50+ Ye ars (1 of 2 - PCV) 1974 Colorectal Cancer Screening: Annual FOBT 2004 Colorectal Cancer Screening: Colonoscopy 2004 Colorectal Cancer Screening: Sigmoidoscopy 2004 Influenza Vaccine (#1) 2025 Hepatitis B Vaccine Aged Out No longe r eligible based on patient's age to complete this topic Insurance [place] Medicaid [place] Care Teams Barrel Finisher Relationship Specialty Start Date End Date Marisabel Palumbo [address] [place] [id number] [facility] - General 02/13/25
== END 2025-05-01 15:00 | disposition home or self-care (01) ==
LOC: HO.LNP 14:59
PROVIDERS: Visit Provider Internal Medicine
DX: Z13.89 Encounter for screening for other disorder (principal)
CPT/HCPCS: 81001; 82043; 82570; 86335